=== PATIENT | female | born 2000 ===

== ENCOUNTER 2024-05-04 04:39 | Day surgery (SDC) | payer OTHER ==
[2024-05-03 09:17] VITALS: BMI 21.6
[2024-05-04 08:44] VITALS: TEMP 98.2
[2024-05-04 09:16] VITALS: BP 113/64; PULSE 63; RESP 16
== END 2024-05-04 09:35 | disposition home or self-care (01) ==
LOC: JASU-ENDO 04:39
PROVIDERS: ATTEND Internal Medicine Gastroenterology
PROC: 0DB78ZX Excision of Stomach, Pylorus, Via Natural or Artificial Opening Endoscopic, Diagnostic (ICD-10-PCS; 2024-05-04)
PROC: 0DB68ZX Excision of Stomach, Via Natural or Artificial Opening Endoscopic, Diagnostic (ICD-10-PCS; 2024-05-04)
PROC: 0DB98ZX Excision of Duodenum, Via Natural or Artificial Opening Endoscopic, Diagnostic (ICD-10-PCS; principal; 2024-05-04 08:30)
DX: K29.50 Unspecified chronic gastritis without bleeding (principal)
CPT/HCPCS: 81025; 88305-TC; 88342-TC